=== PATIENT | male | born 1975 | race Caucasian/White ===

== ENCOUNTER 2017-07-14 11:17 | Observation (INO) | payer BC ==
--- NOTE | 2017-07-14 12:14 | RAD ---
FRONTAL VIEW CHEST: Date: 07/14/17 COMPARISON: 08/28/16. INDICATION: Chest pain. FINDINGS: There is stable enlargement of the cardiac silhouette. No new consolidation, effusion, or discrete pn eumothorax. IMPRESSION: Stable chest. POS: [facility]
[2017-07-14 12:22] LABS: #Lymphocytes 0.5 thou/uL (1.20-3.40); #Monocytes 0.5 thou/uL (0.11-0.59); #Neutrophils 7.2 thou/uL (1.40-6.50); %Basophils 0.3 % (0.0-1.0); %Eosinophils 0.2 % (0.0-10.0); %Lymphocytes 5.7 % (21.0-51.0); %Monocytes 5.6 % (0.0-10.0); %Neutrophils 88.2 % (42.0-75.0); Hemoglobin 14.9 g/dL (14.0-18.0); Mean Corpuscular HGB CONC 32.2 g/dL (32.0-36.0); Mean Corpuscular Hemoglobin 28.2 pg (27.0-31.0); Mean Corpuscular Volume 87.7 fl (80.0-94.0); Platelet Count 236 thou/uL (130-400); White Blood Cell (WBC) Count 8.2 thou/uL (4.8-10.8)
[2017-07-14 12:30] LABS: PTT 31.1 SEC (22.9-36.1); Prothrombin Time 13.6 SEC (12.0-14.7)
[2017-07-14 12:45] LABS: ALT (SGPT) 23 U/L (8-55); AST (SGOT) 15 U/L (5-34); Albumin 3.9 g/dL (3.5-5.0); Alkaline Phosphatase 158 U/L (40-150); Anion Gap 13 mmol/L (10-20); BUN (Urea Nitrogen) 16 mg/dL (8.9-20.6); Bilirubin, Total 0.6 mg/dL (0.2-1.2); CK (CPK) 52 U/L (30-200); Calc. Creatinine Clearance 0 mL/min (70-130); Calcium 8.7 mg/dL (7.8-10.44); Carbon Dioxide 21 mmol/L (22-29); Chloride 107 mmol/L (98-107); Estimated GFR-MDRD 87; Globulin 3.1 g/dL (2.4-3.5); Glucose 105 mg/dL (70-105); Potassium 3.9 mmol/L (3.5-5.1); Sodium 137 mmol/L (136-145)
[2017-07-14 12:48] LABS: CKMB 0.6 ng/mL (0-6.6); Troponin I Less than 0.010 ng/mL (< 0.028)
[2017-07-14] MEDS ORDERED: Ibuprofen 800 MG TAB ONE (13:02)
[2017-07-14] MEDS ORDERED: Morphine 4 MG/ML VIAL ONE (14:20)
[2017-07-14] MEDS ORDERED: Ondansetron HCl/PF 4 MG/2 ML Vial ONE (14:21)
[2017-07-14 15:25] LABS: Troponin I Less than 0.010 ng/mL (< 0.028)
[2017-07-14 15:50] VITALS: BMI 40.1
[2017-07-14] MEDS ORDERED: Ondansetron ODT 4 MG TAB SL PRN (15:59)
[2017-07-14] MEDS ORDERED: Acetaminophen 325 MG TAB PO PRN ×2 (15:59→19:13)
[2017-07-14] MEDS ORDERED: Ondansetron HCl/PF 4 MG/2 ML Vial IVP PRN ×2 (15:59→19:13)
[2017-07-14] MEDS ORDERED: Nitroglycerin 0.4 MG TAB (25 Tab Bottle) PO PRN (17:40)
[2017-07-14] MEDS: Sodium Chloride 0.9% 1,000 ML IV SCH (18:20)
[2017-07-14 19:13] LABS: Troponin I Less than 0.010 ng/mL (< 0.028)
[2017-07-14] MEDS ORDERED: Ondansetron ODT 4 MG TAB PO PRN (19:13)
[2017-07-14] MEDS: Loperamide HCl 2 MG CAP PO PRN ×2 (20:42→22:59)
--- NOTE | 2017-07-14 23:58 | ULT ---
LEFT LOWER EXTREMITY VENOUS DUPLEX ULTRASOUND INCLUDING COLOR AND SPECTRAL DOPPLER IMAGING: HISTORY: A 41-year-old male with a history of left lower extremity pain. FINDINGS: Exam performed from groin to ankle, including the visualized greater saphenous, common femoral, super ficial femoral, profunda femoral, popliteal, trifurcation, and posterior tibial vein regions. There is phasic flow with normal compressibility and normal augmentation at all levels. No intraluminal th rombus. IMPRESSION: No evidence for deep venous thrombosis. POS: [facility]
--- NOTE | 2017-07-15 00:02 | HP ---
DATE OF ADMISSION: 07/14/2017 ADMITTING PHYSICIAN: Yifan Calixto M.D. HISTORY OF PRESENT ILLNESS: This patient is a 41-year-old white male. He states he was in his mac state of health up until this morning. He states he began the day by feeling somewhat fatigued, ti red, and achy. He reported that he had a bout of diarrhea while at work. He developed some substern al chest pain, which he described as a pressure-like sensation to his chest and radiated to his left arm. He notified his elevator supervisor who came in and called [id number]. He was seen and evaluated in the emerge ncy room, acute coronary syndrome was ruled out by lab as well as EKG. He received sublingual nitrog lycerin as well as aspirin, which he stated relieved his chest pain. Since that time, he has had sev eral bouts of watery diarrhea, not associated with any blood. He has noted bilateral leg pain. He h as also had a previous history of cardiac workup. He has undergone a cardiac catheterization in 2013 , performed by Dr. Dumont, which revealed an LAD lesion, 30% to 40% left anterior diagonal, no eviden ce of any other lesions seen. He has been treated with medication. He reported yesterday he had no chest pain or shortness of breath. As noted, he was seen and evaluated in the ER. ER workup thus fa r has been normal and negative, although EKG did show some change of the precordial leads. The patient continues noted to have some diarrhea and generalized ache. He has now developed fever o f 101.2. Otherwise, no other medical complaints are noted. ALLERGIES: CODEINE. CURRENT MEDICATIONS: Include aspirin, Bystolic, simvastatin, citalopram, colchicine. PAST MEDICAL HISTORY: Positive for hypertension, hypercholesterolemia, history of supraventricular t achycardia. PAST SURGICAL HISTORY: Positive for appendectomy, tonsillectomy, uses CPAP as well. SOCIAL/PERSONAL HISTORY: He is . He does not smoke. He drinks alcohol socially. FAMILY HISTORY: Positive for atherosclerotic coronary artery disease. REVIEW OF SYSTEMS: Gastrointestinal: Positive as above. Genitourinary: Negative. Cardiovascular: Positive as above. Respiratory: Negative. Neurologic: Otherwise, negative. PHYSICAL EXAMINATION: VITAL SIGNS: His temperature is now 101.2, pulse 97, respirations 18, O2 sats 100% on room air, bloo d pressure 139/69. GENERAL: He is alert, active, appears to be somewhat tired, but no acute distress. HEENT: Normocephalic, atraumatic. Extraocular muscles are intact. Sclerae and conjunctivae clear. Throat clear. NECK: Supple, full range of motion, no masses. LUNGS: Clear. HEART: Reveals regular rate and rhythm without murmur, gallops or rubs. GASTROINTESTINAL: Abdomen is soft, nontender, bowel sounds are active. No hepatosplenomegaly is not ed. EXTREMITIES: No clubbing, edema or cyanosis. There is bilateral calf tenderness noted without evide nce of negative Homans' sign bilaterally. LABORATORY AND X-RAY FINDINGS: His white blood count is 8.2, hemoglobin 14.9, hematocrit 46.5. Elec trolyte profile is otherwise normal. Troponin x2 is negative. Chest x-ray is clear. IMPRESSION: 1. A 41-year-old male presents with substernal chest pain, radiating to the right arm and family his tory of atherosclerotic coronary artery disease with previous catheterization showing minimal atheros clerotic coronary artery disease. 2. Probable viral syndrome causing diarrhea. 3. Bilateral leg pain. PLAN: 1. The patient will be placed in observation. IV fluids will be given for hydration purposes. 2. We will plan on doing a cardiac stress test if patient can proceed. 3. We will control diarrhea with antidiarrheal compound as well as clear liquids. 4. We will perform bilateral venous ultrasounds of the legs to rule out DVT. Tylenol as needed for fever and pain control. I have discussed the findings with the patient. He is ready to proceed with stress test if he is able to perform tomorrow.
[2017-07-15] MEDS: Sodium Chloride 0.9% 1,000 ML IV SCH ×3 (00:47→18:42)
[2017-07-15] MEDS: Loperamide HCl 2 MG CAP PO PRN ×3 (08:14→23:29)
[2017-07-15] MEDS: Nebivolol HCl 5 MG TAB PO SCH ×2 (09:25→10:51)
[2017-07-15] MEDS: Aspirin 325 MG TAB PO SCH ×2 (09:25→10:51)
--- NOTE | 2017-07-15 14:32 | PRG ---
DATE OF SERVICE: 07/15/2017 SUBJECTIVE: Mr. Oro is resting better. He states his diarrhea has improved. He has had no fur ther chest pain. PHYSICAL EXAMINATION: VITAL SIGNS: Temperature 99.0, BP 130/72, O2 sat is 97% on room air. LUNGS: Clear. HEART: Reveals no murmur. LABORATORY DATA: Troponins x3 are negative. IMPRESSION: 1. Chest pain. 2. Probable viral syndrome causing diarrhea. PLAN: The patient has not been able to complete the stress test today. I have been informed by Radi ology, he will have to have a 2-day stress test. This will be accomplished. We would Hep-Lock his I V.
[2017-07-15] MEDS ORDERED: Regadenoson 0.4 MG/5 ML SYRINGE ONE (16:43)
[2017-07-16] MEDS: Loperamide HCl 2 MG CAP PO PRN (06:06)
[2017-07-16] MEDS: Aspirin 325 MG TAB PO SCH (09:13)
[2017-07-16] MEDS: Nebivolol HCl 5 MG TAB PO SCH (09:13)
--- NOTE | 2017-07-16 10:06 | NM ---
RADIONUCLIDE STRESS REST MYOCARDIAL PERFUSION SCAN WITH CT ATTENTION CORRECTION AND SPECT IMAGING LEFT VENTRICULAR WALL MOTION EVALUATION AND EJECTION FRACTION: HISTORY: Chest pain. FINDINGS: Des protocol was used for a total test time of 6 minutes 15 seconds. There is homogeneous uptake of radiotracer throughout the left ventricular myocardium. No focal perf usion defect or reversibility are evident. QGS analysis of gated SPECT images shows no focal wall mo tion abnormalities. TID=1.1. LHR=54%. Left ventricular ejection fraction was calculated at 75%. IMPRESSION: Normal myocardial perfusion scan. Normal left ventricular ejection fraction. POS: [facility]
[2017-07-16 12:28] VITALS: BP 110/72; TEMP 98.8
== END 2017-07-16 13:58 | disposition home or self-care (01) ==
LOC: ERS 11:17 → 2SW 13:51
PROVIDERS: ADMIT Family Medicine; ATTEND Family Medicine
DX: R07.2 Precordial pain (principal); R19.7 Diarrhea, unspecified; M79.605 Pain in left leg; M79.604 Pain in right leg; I10 Essential (primary) hypertension; E78.00 Pure hypercholesterolemia, unspecified; K21.9 Gastro-esophageal reflux disease without esophagitis; Z88.5 Allergy status to narcotic agent; Z88.8 Allergy status to other drugs, medicaments and biological substances; Z79.82 Long term (current) use of aspirin; Z79.899 Other long term (current) drug therapy; Z99.89 Dependence on other enabling machines and devices
CPT/HCPCS: 36415; 71045; 78452; 80053; 82550; 82553; 84484; 85025; 85610; 85730; 93005; 93017; 96361; 96374; 96375; A9500; G0378; J2270; J2405; J2785

== ENCOUNTER 2018-02-15 12:07 | Emergency (ER) | payer BC | END 2018-02-15 12:33 | disposition home or self-care (01) | LOC: SCSER 12:07 | DX: H60.92 Unspecified otitis externa, left ear (principal); I49.9 Cardiac arrhythmia, unspecified; E78.5 Hyperlipidemia, unspecified; J45.909 Unspecified asthma, uncomplicated; G47.30 Sleep apnea, unspecified; F41.9 Anxiety disorder, unspecified; F32.9 Major depressive disorder, single episode, unspecified; Z87.891 Personal history of nicotine dependence; Z79.899 Other long term (current) drug therapy | CPT/HCPCS: 99283 ==